=== PATIENT | female | born 1935 | race Caucasian/White ===

== ENCOUNTER → 2018-11-24 | Outpatient (CLI) | payer MEDICARE, OTHER ==
[~2018-11-24] MED LIST: ASPIRIN 81M81 MG/TA2 PO; LEVOXYL0.075 MG PO; TYLENOL 325MG325 MG PO; ZEBETA 5MG5 MG PO; ZESTRIL 10MG10 MG PO
== END ==
LOC: MC.RAD 14:32
DX: Z12.31 Encounter for screening mammogram for malignant neoplasm of breast (principal)

== ENCOUNTER → 2020-02-22 | Outpatient (CLI) | payer MEDICARE, OTHER | LOC: MC.RAD 12:33 | DX: N63.20 Unspecified lump in the left breast, unspecified quadrant (principal) ==

== ENCOUNTER → 2020-02-28 | Outpatient (CLI) | payer MEDICARE, OTHER | LOC: MC.RAD 09:52 | DX: N63.20 Unspecified lump in the left breast, unspecified quadrant (principal) | CPT/HCPCS: 30634 ==

== ENCOUNTER 2020-03-13 08:02 | Day surgery (SDC) | payer MEDICARE, OTHER ==
[~2020-03-13] VITALS: Ht 162.6 cm; Wt 74.1 kg
[2020-03-13] MEDS ORDERED: FOSAMAX 70MG TA70 MG PO (09:10)
[2020-03-13] MEDS ORDERED: VITAMIN D250 MCG PO (09:11)
[2020-03-13] MEDS ORDERED: OCUVITE1 TA1 PO (09:11)
[2020-03-13 09:12] VITALS: BP 98/60; PULSE 58; TEMP 97.2
--- NOTE | 2020-03-13 10:29 | NUR ---
Dr. Morris is aware that the patient's COVID 19 test has not resulted yet. The patient is taken to the OR at this time.
[2020-03-13] MEDS ORDERED: NORCO 325 MG-51 TAB PO (11:17)
[2020-03-13 11:20] VITALS: BP 91/41; PULSE 51; TEMP 97.1
--- NOTE | 2020-03-13 11:20 | NUR ---
Patient arrives to [facility] via cart, accompanied by HEALTH AND WELLNESS COACH Cris and [employer] ATTENDANT Jose Erickson. Bedside report is received. The patient is alert and oriented. Her spouse is at the bedside. Monitoring is applied - VSS on room air. HR and BP are very close to pre-op measurements. She denies any pain or nausea. She has a clean, dry, intact bandage on her operative site. She is offered and receives water, orange juice, and a muffin to eat. Call light is in reach.
[2020-03-13 11:35] VITALS: BP 93/60; PULSE 52
--- NOTE | 2020-03-13 11:35 | NUR ---
VSS on room air. Denies pain, nausea, or need. She has eaten her muffin and drank her juice. Her dressing is clean, dry, intact. PIV to TKO.
[2020-03-13 11:50] VITALS: BP 110/45; PULSE 52
--- NOTE | 2020-03-13 11:50 | NUR ---
VSS on room air. Patient ambulates to the restroom, voids, and returns to room. Gait steady. Denies pain or nausea.
--- NOTE | 2020-03-13 12:15 | NUR ---
Patient has met discharge criteria. Discharge instructions are discussed with her and her spouse. They deny questions and verbalize understanding. PIV is removed with the catheter intact and hemostasis achieved. SHe is given a paper prescription for [place]. She is aware of her follow-up appointment in 6 weeks and the appointment information is on her discharge paperwork. She changes to her clothing independently. SHe is escorted to the exit via wheelchair by staff. She is discharged to home with ride in private vehicle at 1215.
== END 2020-03-13 12:15 | disposition home or self-care (01) ==
LOC: SDCO 08:02
DX: C50.112 Malignant neoplasm of central portion of left female breast (principal); I10 Essential (primary) hypertension; E03.9 Hypothyroidism, unspecified; G89.29 Other chronic pain; Z80.3 Family history of malignant neoplasm of breast; Z88.2 Allergy status to sulfonamides; Z79.82 Long term (current) use of aspirin
CPT/HCPCS: J0690; J2704; J7120

== ENCOUNTER → 2020-04-11 | Outpatient (CLI) | payer MEDICARE, OTHER ==
[~2020-04-11] MED LIST changes: +FOSAMAX 70MG TA70 MG PO; +NORCO 325 MG-51 TAB PO; +OCUVITE1 TA1 PO; +VITAMIN D250 MCG PO
== END ==
LOC: MC.RAD
DX: C50.112 Malignant neoplasm of central portion of left female breast (principal); I10 Essential (primary) hypertension; Z98.890 Other specified postprocedural states; R59.0 Localized enlarged lymph nodes

== ENCOUNTER → 2021-01-28 | Outpatient (CLI) | payer MEDICARE, OTHER | LOC: MC.RAD 13:38 | DX: R23.4 Changes in skin texture (principal); Z90.12 Acquired absence of left breast and nipple; Z92.3 Personal history of irradiation; Z98.890 Other specified postprocedural states; N61.0 Mastitis without abscess ==

== ENCOUNTER → 2022-01-17 | Outpatient (CLI) | payer MEDICARE, OTHER | LOC: ZCOL.LAB 19:02 | DX: C50.412 Malignant neoplasm of upper-outer quadrant of left female breast (principal) ==

== ENCOUNTER → 2022-03-21 | Outpatient (CLI) | payer MEDICARE, OTHER | LOC: MC.RAD 09:56 | DX: Z12.31 Encounter for screening mammogram for malignant neoplasm of breast (principal); Z85.3 Personal history of malignant neoplasm of breast ==

== ENCOUNTER → 2023-07-07 | Outpatient (CLI) | payer MEDICARE, OTHER | LOC: MC.RAD 07:46 | DX: Z12.31 Encounter for screening mammogram for malignant neoplasm of breast (principal) ==